=== PATIENT | male | born 1975 | race Caucasian/White ===

== ENCOUNTER 2019-01-18 06:59 | Day surgery (SDC) | payer OTHER ==
[2019-01-18] MEDS ORDERED: ANESTHESIA TRAY IN PYXIS 1 EA TRAY MC ONE (07:40)
[2019-01-18] MEDS ORDERED: LIDOCAINE HCL/PF 1% 30 ML SDV ONE (07:40)
[2019-01-18] MEDS ORDERED: methylPREDNISolone ACETATE 80 MG/ML VIAL ONE (07:40)
[2019-01-18] MEDS ORDERED: MIDAZOLAM HCL 2 MG/2ML VIAL ONE (08:54)
[2019-01-18] MEDS ORDERED: HYDROCODONE/APAP 5/325MG 1 EACH TABLET ONE (10:29)
== END 2019-01-18 11:00 | disposition home or self-care (01) ==
LOC: DS 06:59
PROVIDERS: ATTEND Specialist
DX: S83.242A Other tear of medial meniscus, current injury, left knee, initial encounter (principal); F41.8 Other specified anxiety disorders; M22.42 Chondromalacia patellae, left knee; G43.909 Migraine, unspecified, not intractable, without status migrainosus; Z79.899 Other long term (current) drug therapy; X58.XXXA Exposure to other specified factors, initial encounter; Y93.89 Activity, other specified; Y92.89 Other specified places as the place of occurrence of the external cause; Y99.8 Other external cause status
CPT/HCPCS: 20610; 29881; 88304; 88311; A4217; A6253; J0690; J1040; J1100; J1885; J2250; J2405; J2704; J3490 ×2; J7120